=== PATIENT | male | born 1955 | race Caucasian/White ===

== ENCOUNTER 2017-01-29 20:12 | Emergency (ER) | payer OTHER ==
[2017-01-29 20:37] VITALS: TEMP 99.4
[2017-01-29] MEDS ORDERED: POTASSIUM CHLORIDE 2 MEQ/ML SOL IV ONE (20:37)
[2017-01-29] MEDS ORDERED: LABETALOL HYDROCHLORIDE 5 MG/ML SOL IV ONE ×2 (21:08→21:15)
[2017-01-29] MEDS ORDERED: MAGNESIUM SULFATE 5 GM/10 ML SOL ONE (21:49)
[2017-01-29 22:03] VITALS: BP 166/75; PULSE 84; RESP 16; O2SAT 94
== END 2017-01-29 22:15 | disposition short-term general hospital (02) | DRG 395 ==
LOC: ED 20:12
DX: T18.128A Food in esophagus causing other injury, initial encounter (principal)
CPT/HCPCS: 71020; 93005; 96374; 99284; J3475; J3480